=== PATIENT | male | born 1975 | race Caucasian/White ===

== ENCOUNTER 2020-12-17 00:30 | Emergency (ER) | payer BC ==
[~2020-12-17] VITALS: Ht 190.5 cm; Wt 95.5 kg
[2020-12-17 01:43] VITALS: BP 122/78
--- NOTE | 2020-12-17 02:13 | NUR ---
pt has pain in his center of the chest from throat to epigastric area today. Known covkael.
== END 2020-12-17 03:18 | disposition home or self-care (01) ==
LOC: ER 00:31
DX: U07.1 COVID-19 (principal); R07.89 Other chest pain; R05 Cough
CPT/HCPCS: 71045; 93005; 99283

== ENCOUNTER 2020-12-21 08:17 | Emergency (ER) | payer BC ==
[~2020-12-21] VITALS: Ht 190.5 cm; Wt 95.5 kg
[2020-12-21] MEDS ORDERED: normal saline 1000ML IV soln IVB ONE (09:25)
[2020-12-21] MEDS ORDERED: ondansetron/PF 4mg/2ml inj IV ONE (09:25)
[2020-12-21] MEDS ORDERED: normal saline 1000ml 1,000 ML IV ONE (09:25)
[2020-12-21] MEDS ORDERED: dexamethasone sod phosphate 10mg/ml inj IV STA (09:25)
[2020-12-21] MEDS ORDERED: ketorolac trometh. 30mg/ml inj. IV ONE (09:25)
[2020-12-21] MEDS ORDERED: iohexol 350MG/ML 100ml bottle IV ONE (09:45)
[2020-12-21 09:55] LABS: BASOPHILS % (AUTO) 0.3 % (0-1); EOSINOPHILS % (AUTO) 0 % (0-6); HEMATOCRIT 43.3 % (42.0-52.0); HEMOGLOBIN 15.1 g/dl (14.0-17.9); LYMPHOCYTES # (AUTO) 0.4 X10'3 (1.1-4.8); LYMPHOCYTES % (AUTO) 8.6 % (21-51); MEAN CORPUSCULAR HEMOGLOBIN 31.5 PG (27.0-31.0); MEAN CORPUSCULAR HGB CONC 34.9 g/dL (33.0-36.5); MEAN CORPUSCULAR VOLUME 90.2 FL (78-98); MONOCYTES # (AUTO) 0.2 X10'3 (0-0.9); MONOCYTES % (AUTO) 5.1 % (2-12); NEUTROPHILS # (AUTO) 3.6 X10'3 (1.8-7.7); PLATELET COUNT 205 X10'3 (140-440); RED CELL DISTRIBUTION WIDTH 12.5 % (11.5-14.5); WHITE BLOOD COUNT 4.2 X10'3 (4.5-11.0)
[2020-12-21 10:11] LABS: ALANINE AMINOTRANSFERASE 49 U/L (12-78); ALBUMIN 3.9 G/DL (3.4-5.0); ALKALINE PHOSPHATASE 52 IU/L (46-116); ANION GAP 10 (8-16); ASPARTATE AMINO TRANSFERASE 54 U/L (10-37); BILIRUBIN,TOTAL 0.4 MG/DL (0.1-1.0); BLOOD UREA NITROGEN 9 MG/DL (7-18); BUN/CREATININE RATIO 7.6 (5.4-32.0); CALCIUM 8.5 MG/DL (8.5-10.1); CHLORIDE 101 MMOL/L (99-107); CREATININE 1.18 MG/DL (0.60-1.10); GLUCOSE 103 MG/DL (70-104); POTASSIUM 4.3 MMOL/L (3.5-5.1); SODIUM 138 MMOL/L (135-145); TOTAL CARBON DIOXIDE 26.8 MMOL/L (24-32); TOTAL PROTEIN 7.9 G/DL (6.4-8.2); eGFR 66 ML/MIN
[2020-12-21] MEDS ORDERED: DEXA6TAB6 PO (11:11)
[2020-12-21] MEDS ORDERED: Ivermectin 3mg tablet PO ONE (12:20)
[2020-12-21 12:50] VITALS: BP 121/75
== END 2020-12-21 12:52 | disposition home or self-care (01) ==
LOC: ER 08:17
DX: U07.1 COVID-19 (principal); R50.9 Fever, unspecified; R05 Cough; R53.83 Other fatigue; R20.0 Anesthesia of skin; Z79.899 Other long term (current) drug therapy
CPT/HCPCS: 36415; 71275; 80053; 85025; 96361; 96374; 96375; 99285; J1100; J1885; J2405; J7030; Q9967